=== PATIENT | female | born 1990 | race Caucasian/White ===

== ENCOUNTER 2016-11-08 20:56 | Emergency (ER) | payer MEDICAID ==
[~2016-11-08] VITALS: Ht 160 cm; Wt 72.6 kg
[~2016-11-08 20:56] MED LIST: ALBU17AE26
[2016-11-08 20:58] VITALS: BP_SYST 146
--- NOTE | 2016-11-08 21:10 | NUR ---
Placed in room Hallway . Report given to RN.
--- NOTE | 2016-11-08 21:10 | NUR ---
Patient AAO x4, sitting in chair, c/o minor itching to back of throat and "feeling like my throat is closing." Patient denies chest pain, denies N/V/D, denies shortness of breath. No rash noted to skin. Vital signs stable. Patient placed on pulse ox. No acute distress noted. Will continue to monitor.
--- NOTE | 2016-11-08 21:17 | NUR ---
TERI Alatorre at bedside examining patient.
[2016-11-08] MEDS ORDERED: DIPHENHYDRAMINE INJ 50 MG/ML VIAL IM ONE (21:30)
[2016-11-08] MEDS ORDERED: DEXAMETHASONE SOD PHOSPHATE 10 MG/ML VIAL IM ONE (21:30)
[2016-11-08] MEDS ORDERED: FAMOTIDINE 20 MG TABLET PO ONE (21:30)
[2016-11-08 22:05] VITALS: BP_SYST 122
--- NOTE | 2016-11-08 22:05 | NUR ---
Patient given written and verbal discharge instructions and verbalizes understanding. ER MD discussed with patient the results and treatment provided. Patient in stable condition. ID arm band removed. Rx of Prednisone, pepcid, benadryl given. Patient educated on pain management and to follow up with PMD. Pain Scale 0/10. Opportunity for questions provided and answered.
== END 2016-11-08 22:05 | disposition home or self-care (01) ==
LOC: SED 20:56
DX: T78.3XXA Angioneurotic edema, initial encounter (principal); J45.909 Unspecified asthma, uncomplicated; F32.9 Major depressive disorder, single episode, unspecified
CPT/HCPCS: 81025; 96372; 99284; J1100; J1200

== ENCOUNTER 2016-11-19 00:23 | Emergency (ER) | payer MEDICAID ==
[~2016-11-19] VITALS: Ht 160 cm; Wt 72.6 kg
[2016-11-19 00:23] VITALS: BP_SYST 151
[2016-11-19] MEDS ORDERED: IPRATROPIUM BROM 0.5 MG/2.5 ML VIAL.NEB (ATROVENT) IH ONE (00:45)
[2016-11-19] MEDS ORDERED: ALBUTEROL SULFATE 0.083% 2.5 MG/3 ML VIAL.NEB IH ONE (00:45)
[2016-11-19] MEDS ORDERED: ALBUTEROL SULFATE 0.083% 2.5 MG/3 ML VIAL.NEB INH ONE (00:49)
[2016-11-19 01:51] VITALS: BP_SYST 132
== END 2016-11-19 01:50 | disposition home or self-care (01) ==
LOC: SED 00:23
DX: J45.901 Unspecified asthma with (acute) exacerbation (principal)
CPT/HCPCS: 94640; 99283

== ENCOUNTER 2017-03-25 17:58 | Inpatient (IN) | payer MEDICAID ==
[~2017-03-25] VITALS: Ht 160 cm; Wt 71.7 kg
[2017-03-25 18:40] VITALS: BP_SYST 142
--- NOTE | 2017-03-25 18:45 | NUR ---
Patient to ER bed 05 to gown for evaluation. Side rails up. Report given to Kristine.
--- NOTE | 2017-03-25 18:45 | NUR ---
ER at bedside examining patient.
[2017-03-25] MEDS ORDERED: IPRATROPIUM/ALBUTEROL SULFATE 3 ML AMPUL.NEB INH ONE (19:00)
[2017-03-25] MEDS ORDERED: NACL 0.9% 1,000 ML IV ONE ×3 (19:00→22:15)
[2017-03-25] MEDS ORDERED: ACETAMINOPHEN 500 MG TABLET PO ONE (19:00)
--- NOTE | 2017-03-25 19:05 | NUR ---
Patient arrived to ED a/o x 4 with c/o fever since wednesday. Patient reports recording 102.3 temp while at home. Patient taking tylenol around the clock with no relief. Patient appears diaphoretic. Upon assessment patient presents with HR of 133. Temp of 101.2. Patient denies pain and malaise at this time. Will continue to monitor.
--- NOTE | 2017-03-25 19:05 | NUR ---
20 gauge angiocath placed to right AC. Use of asceptic technique. Opsite placed over site. Blood return noted. Blood for lab drawn from site. Flushed with 10 cc of normal saline. No evidence of infiltration noted. Patient tolerated well.
--- NOTE | 2017-03-25 19:40 | NUR ---
Radiology at bedside.
--- NOTE | 2017-03-25 20:05 | NUR ---
ED MD Osea at bedside evaluating patient.
[2017-03-25] MEDS ORDERED: LEVOFLOXACIN 500 MG/D5W 100 ML IV ONE (20:30)
[2017-03-25] MEDS ORDERED: cefTRIAXone 1 GM IVPB PREMIX 50 ML IV ONE (20:30)
[2017-03-25 20:43] LABS: BILIRUBIN,URINE NEGATIVE (NEGATIVE); BLOOD, URINE 1+ (NEGATIVE); CLARITY/URINE CLEAR (CLEAR); COLOR,URINE YELLOW (YELLOW); GLUCOSE,URINE NEGATIVE (NEGATIVE); KETONES,URINE NEGATIVE (NEGATIVE); LEUKOCYTE ESTERASE ,URINE 1+ (NEGATIVE); NITRITE, URINE NEGATIVE (NEGATIVE); PH,URINE 7.5 (5.0-8.0); PROTEIN URINE NEGATIVE (NEGATIVE); UROBILINOGEN,URINE 0.2 (0.2-1.0)
[2017-03-25 20:43] LABS: BASOPHILS % (AUTO) 0.1 % (0.0-2.0); EOSINOPHILS % (AUTO) 0.1 % (0.0-4.0); HEMATOCRIT 42.6 % (36-48); HEMOGLOBIN 14.4 g/dL (12.0-16.0); LYMPHOCYTES % (AUTO) 9.9 % (20.5-51.5); MEAN CORPUSCULAR HEMOGLOBIN 30 pg (27-31); MEAN CORPUSCULAR HGB CONC 34 % (32-36); MEAN CORPUSCULAR VOLUME 88 fL (79.0-98.0); MONOCYTES % (AUTO) 9.7 % (1.7-9.3); NEUTROPHILS # (AUTO) 8.5 K/uL (1.8-7.7); NEUTROPHILS % (AUTO) 80.2 % (40.0-70.0); PLATELET COUNT (AUTO) 262 K/uL (130-430); RED BLOOD CELL COUNT(AUTO) 4.83 MIL/uL (4.2-6.2); RED CELL DISTRIBUTION WIDTH 11.2 % (9.0-15.0); WHITE BLOOD COUNT (AUTO) 10.5 K/uL (4.8-10.8)
[2017-03-25 20:49] LABS: CALCIUM 8.8 mg/dL (8.4-11.0); CREATININE 0.7 mg/dL (0.55-1.30); POTASSIUM 3.7 mmol/L (3.5-5.1)
[2017-03-25 20:53] LABS: ALBUMIN 3.8 g/dL (3.4-4.8); TOTAL BILIRUBIN 0.4 mg/dL (0.0-1.0)
[2017-03-25 21:11] LABS: PROTHROMBIN TIME 10.8 SECS (9.5-12.5)
[2017-03-25 21:12] LABS: BACTERIA,URINE MANY /HPF (None Seen)
[2017-03-25 21:13] LABS: MUCUS,URINE None Seen /LPF (None Seen)
[2017-03-25] MEDS ORDERED: CETI1TAB2 PO (21:25)
[2017-03-25] MEDS ORDERED: LEVO1TAB24 PO (21:25)
[2017-03-25] MEDS ORDERED: MONT10TA25 PO (21:25)
[2017-03-25] MEDS ORDERED: CEL20 PO (21:25)
--- NOTE | 2017-03-25 21:26 | NUR ---
Medication reconciliation completed with information provided by PATIENT. Any prior medication reconciliation on file was reviewed and corrected.
--- NOTE | 2017-03-25 21:50 | NUR ---
ED MD Osea at bedside reassessing patient.
--- NOTE | 2017-03-25 22:27 | NUR ---
ADMISSION NOTE Received patient from ER via adelina, received report from Ranjan HUNTLEY. Patient admitted with diagnosis of PNA. Patient oriented to hospital routine, call light, toileting and safety-patient verbalized understanding.
--- NOTE | 2017-03-25 22:30 | NUR ---
Patient will be admitted to care of Dr. Greer. Admitted to Med/Surg unit. Will go to room 110B. Belongings list completed. Summary report printed. Report will be given at bedside. Transfer to [facility]. IV present no sign or symptom of infiltration.
[2017-03-25 22:34] VITALS: BP_SYST 132
[2017-03-25] MEDS ORDERED: AZITHROMYCIN 500 MG/VIAL (ZITHROMAX) IV ONE (22:48)
--- NOTE | 2017-03-25 23:00 | NUR ---
Medication Scheduled medication given please see EMAR. Educated patient aviation technical systems specialist light for assistance. Call light is with patient. oriented patient to room. Patient has family member at bed side. Patient shows no signs of distress breathing is equal and non labored. Patient is awake and sitting in bed. Patient has safety precautions in place. Will continue to monitor.
--- NOTE | 2017-03-26 | NUR ---
Snack Patient is requesting a snack provided snack to patient. Shows no signs of distress breathing is equal and non labored. Patient has call light with her educated to use for assistance. Patient has family member at bed side.Patient has safety precautions in place will continue to monitor.
[2017-03-26 00:34] VITALS: BP_SYST 120
--- NOTE | 2017-03-26 02:00 | NUR ---
RN rounding Patient appears to be resting with eyes closed no signs of distress breathing is equal and non labored with visible chest rise and fall. Patient has safety precautions in place. call light is with patient for assistance. Patient has family member at bed side.
[2017-03-26] MEDS: ACETAMINOPHEN 325 MG TABLET PO PRN ×2 (03:27→21:02)
--- NOTE | 2017-03-26 03:31 | NUR ---
Fever Patient has a temperature of 100.8 medicated as order cooling measures also applied. Patient shows no signs of distress breathing is equal and non labors. Patient has safety precautions in place. Refusing bed alarm at this time. Patients family member at bed side. Patient has call light with her educated use for assistance. will continue to monitor.
--- NOTE | 2017-03-26 04:33 | NUR ---
Reassessment of temperature Temperature went down to 99.9 F patient states she is feeling better. Patient shows no signs of distress breathing is equal and non labored. Safety precautions in place refusing bed alarm. Patient has call light with her educated to use for assistance.Family member is still at bed side. Will continue to monitor.
[2017-03-26 05:49] VITALS: BP_SYST 120
[2017-03-26] MEDS ORDERED: FLU VACC QS 2017-18(36MOS+)/PF 0.5 ML/SYR SYRINGE I.M. ONE (06:26)
--- NOTE | 2017-03-26 06:26 | NUR ---
RN clsoing note/ Flu shot Patients flu shot administered per request and protocol. Patient tolerated well applied band aid. Patient shows no signs of distress breathing is equal and non labored. Patient has call light with her educated to use for assistance. Patient has safety precautions in place refusing bed alarm will endorse report to oncoming day nurse at bed side. Patient is stable at this time.
[2017-03-26 07:09] LABS: BASOPHILS # (AUTO) 0.1 K/uL (0.0-0.2); BASOPHILS % (AUTO) 0.7 % (0.0-2.0); HEMATOCRIT 35.2 % (36-48); HEMOGLOBIN 12.5 g/dL (12.0-16.0); LYMPHOCYTES # (AUTO) 2.1 K/uL (1.0-5.5); LYMPHOCYTES % (AUTO) 24.7 % (20.5-51.5); MEAN CORPUSCULAR HEMOGLOBIN 31 pg (27-31); MEAN CORPUSCULAR HGB CONC 35 % (32-36); MEAN CORPUSCULAR VOLUME 88 fL (79.0-98.0); MONOCYTES # (AUTO) 0.9 K/uL (0.0-1.0); MONOCYTES % (AUTO) 10.3 % (1.7-9.3); NEUTROPHILS # (AUTO) 5.5 K/uL (1.8-7.7); NEUTROPHILS % (AUTO) 64.3 % (40.0-70.0); PLATELET COUNT (AUTO) 212 K/uL (130-430); RED BLOOD CELL COUNT(AUTO) 4.01 MIL/uL (4.2-6.2); RED CELL DISTRIBUTION WIDTH 11.4 % (9.0-15.0); WHITE BLOOD COUNT (AUTO) 8.6 K/uL (4.8-10.8)
[2017-03-26 07:48] LABS: CALCIUM 8.1 mg/dL (8.4-11.0); CREATININE 0.61 mg/dL (0.55-1.30); POTASSIUM 3.4 mmol/L (3.5-5.1); TOTAL BILIRUBIN 0.4 mg/dL (0.0-1.0)
--- NOTE | 2017-03-26 08:00 | NUR ---
AM SHIFT NOTE: RECEIVED PT A/O X4, C/O PNEUMONIA, IV AT RIGHT A/C, VOIDING, AMBULATED WELL, SKIN INTACT, BED AT LOW POSITION, CALL LIGHT WITHIN REACH.
[2017-03-26] MEDS ORDERED: AZITHROMYCIN 500 MG in NS 250 ML IV SCH (09:00)
[2017-03-26] MEDS ORDERED: cefTRIAXone 1 GM in D5W 50 ML IV SCH (09:00)
[2017-03-26] MEDS ORDERED: POTASSIUM CHLORIDE 20 MEQ TAB.PRT.SR PO ONE (10:30)
--- NOTE | 2017-03-26 10:30 | NUR ---
ROUNDING: ROUTINE MEDS GIVEN, PT WAS C/O NAUSEA AT THIS TIME, CONTINUE TO MONITOR.
--- NOTE | 2017-03-26 11:30 | NUR ---
Called pharmacy: Missing dose of IV Meds, called pharmacy, it was given last night at around 0030 03/26/19 am.
[2017-03-26 12:51] VITALS: BP_SYST 127
[2017-03-26 16:17] VITALS: BP_SYST 128
--- NOTE | 2017-03-26 16:30 | NUR ---
ROUNDING: PT WAS RESTING IN BED, FAMILY AT BED SIDE.
[2017-03-26] MEDS ORDERED: ONDANSETRON HCL 4 MG/2 ML VIAL IVP PRN (17:30)
--- NOTE | 2017-03-26 18:30 | NUR ---
ROUNDING: PT WAS C/O NAUSEA , MEDS GIVEN, CONTINUE TO MONITOR.
--- NOTE | 2017-03-26 19:05 | NUR ---
CLOSING: ENDORSED TO MIDDLE S[employer] PRINCIPAL RN/SERAFIN FOR CONTINUE CARE.
--- NOTE | 2017-03-26 19:10 | NUR ---
OPENING NOTES RECEIVED REPORT AT BEDSIDE. PT IS AOX4, IN GOOD SPIRITS. MOTHER AT BEDSIDE. IV PATENT AND SALINE LOCK. RESPIRATIONS EVEN AND UNLABORED. NO S/S OF ACUTE DISTRESS NOTED. BED IN LOWEST POSITION, BED ALARM ON, CALL LIGHT WITHIN REACH.
[2017-03-26 19:55] VITALS: BP_SYST 108
[2017-03-26] MEDS ORDERED: CEFTRIAXONE SOD 1 GM/ DEXTROSE,ISO 50 ML PREMIX IV SCH (21:00)
--- NOTE | 2017-03-26 21:07 | NUR ---
RN ROUNDS PATIENT IS SITTING UP IN BED, IN GOOD SPIRITS, COMPLAINING OF HEADACHE, AND A TEMP OF 99.8. ADMINISTERED PRN PAIN MEDICATION. MOTHER AT BEDSIDE.
--- NOTE | 2017-03-26 23:00 | NUR ---
RN ROUNDS PATIENT IS SLEEPING, RISE AND FALL OF CHEST NOTED. NO S/S OF ACUTE DISTRESS. FALL PRECAUTIONS IN PLACE, BED ALARM ON, CALL LIGHT WITHIN REACH. MOTHER AT BEDSIDE.
[2017-03-27] VITALS (7 sets, daily range): BP systolic 105–127
--- NOTE | 2017-03-27 00:08 | NUR ---
RN ROUNDS PT IS AFEBRILE, COUGHING, DENIES PAIN, DENIES NAUSEA. MOTHER AT BEDSIDE. IV ANTIBIOTICS INFUSING WITH NO SIGNS OF INFILTRATION. NO S/S OF ACUTE DISTRESS NOTED. FALL PRECAUTIONS IN PLACE. CALL LIGHT WITHIN REACH.
[2017-03-27] MEDS: AZITHROMYCIN 500 MG in NS 250 ML IV SCH ×2 (00:11→23:20)
--- NOTE | 2017-03-27 03:00 | NUR ---
RN ROUNDS NO CHANGE IN CONDITION, NO ACUTE DISTRESS NOTED
--- NOTE | 2017-03-27 04:57 | NUR ---
RN ROUNDS PT IS SLEEPING WITH VISIBLE RISE AND FALL FO CHEST NOTED. NO S/S OF ACUTE DISTRESS.
--- NOTE | 2017-03-27 06:57 | NUR ---
CLOSING NOTES PATIENT IS SITTING UP IN BED IN GOOD SPIRITS. NO S/S OF ACUTE DISTRESS. FALL PRECAUTIONS IN PLACE, BED ALARM ON, CALL LIGHT WITHIN REACH. MOTHER AT BEDSIDE. WILL ENDORSE CARE TO DAYSHIFT NURSE.
--- NOTE | 2017-03-27 07:40 | NUR ---
INATAL SHIFT NOTES RECEIVED REPORT AT BEDSIDE. PT IS AOX4, IN GOOD SPIRITS. MOTHER AT BEDSIDE. IV PATENT AND SALINE LOCK. RESPIRATIONS EVEN AND UNLABORED. NO S/S OF ACUTE DISTRESS NOTED. BED IN LOWEST POSITION, BED ALARM ON, CALL LIGHT WITHIN REACH WILL CONTINUE MONITORING.
[2017-03-27] MEDS ORDERED: POTASSIUM CHLORIDE 20 MEQ TAB.PRT.SR PO ONE (09:45)
[2017-03-27] MEDS ORDERED: traMADol HCL HCL 50 MG TABLET (ULTRAM) PO PRN (09:45)
--- NOTE | 2017-03-27 11:46 | NUR ---
ROUND NATHAN HAGER MED ROUND AT THIS TIME ALL UPDATES IS GIVEN WE WILL FOLLOW UP WITH NEW ORDER.
[2017-03-27 12:40] LABS: BASOPHILS % (AUTO) 0.4 % (0.0-2.0); EOSINOPHILS % (AUTO) 0.4 % (0.0-4.0); HEMATOCRIT 42.8 % (36-48); HEMOGLOBIN 14.5 g/dL (12.0-16.0); LYMPHOCYTES # (AUTO) 2.7 K/uL (1.0-5.5); LYMPHOCYTES % (AUTO) 39.5 % (20.5-51.5); MEAN CORPUSCULAR HEMOGLOBIN 29 pg (27-31); MEAN CORPUSCULAR HGB CONC 34 % (32-36); MEAN CORPUSCULAR VOLUME 87 fL (79.0-98.0); MONOCYTES % (AUTO) 14.2 % (1.7-9.3); NEUTROPHILS # (AUTO) 3.2 K/uL (1.8-7.7); NEUTROPHILS % (AUTO) 45.5 % (40.0-70.0); PLATELET COUNT (AUTO) 274 K/uL (130-430); RED BLOOD CELL COUNT(AUTO) 4.92 MIL/uL (4.2-6.2); RED CELL DISTRIBUTION WIDTH 11.3 % (9.0-15.0); WHITE BLOOD COUNT (AUTO) 6.9 K/uL (4.8-10.8)
[2017-03-27 12:43] LABS: CALCIUM 8.9 mg/dL (8.4-11.0); CREATININE 0.7 mg/dL (0.55-1.30); POTASSIUM 3.8 mmol/L (3.5-5.1)
--- NOTE | 2017-03-27 14:00 | NUR ---
RN ROUNDS PT IS SLEEPING NO S/S OF ACUTE DISTRESS NOTED AT THIS TIME WILL CONTINUE MONITORING.
[2017-03-27] MEDS: cefTRIAXone 1 GM IVPB PREMIX 50 ML IV SCH (14:59)
--- NOTE | 2017-03-27 18:28 | NUR ---
paged paged for Dr Greer, dialed [phone]. s/w Dianne.
[2017-03-27] MEDS ORDERED: ALPRAZolam 0.25 MG TABLET PO PRN (18:45)
[2017-03-27] MEDS: CITALOPRAM HYDROBROMIDE 20 MG TABLET PO SCH (18:45)
--- NOTE | 2017-03-27 18:51 | NUR ---
MEDICATION PT SAYS SHE TOOK CATALOPRAM 20MG DAILY AND ALPRAZOLAM 0.5 MG PRN FOR ANXIETY. PAGE FOR DR HAGER AND HE IS OK TO PUT THE MEDICATION IN OUR SYSTEM AND ADMINISTER ORDERED, MEDICATION IS PUT IN OUR SYSTEM AND WAITING OUT SIDE PHARMACY VERIFICATION. .
--- NOTE | 2017-03-27 18:59 | NUR ---
END OF SHIFT NOTE PT ON BED A,OX4, WAITING FOR ANTI ANXIETY MEDICATION, NO S/E OF SOB OR DISTRESS NOTED AT THIS TIME WE WILL INDORSE CARE FOR NEXT SHIFT.
--- NOTE | 2017-03-27 19:55 | NUR ---
INITIAL NOTE RECEIVED REPORT FROM DAY SHIFT. PT IN BED MOM BY BEDSIDE. PT STATES FEELING ANXIOUS REQUESTS FOR HER HOME MED FOR ANXIETY. MEDICATION GIVEN. SIDE EFFECTS EXPLAINED. PT DENIES ANY NEEDS THIS TIME. BED AT LOWEST POSITION. CALL LIGHT WITHIN REACH. WILL CONTINUE TO MONITOR.
--- NOTE | 2017-03-27 22:21 | NUR ---
rn rounds Pt in bed with eyes closed. Mom by bedside. Mom reports pt has been restless in bed but no complaint of pain or discomfort. safety precautions in place. bed lowest position. call light within reach. continues to monitor
[2017-03-28] VITALS: BP_SYST 109
[2017-03-28] MEDS: cefTRIAXone 1 GM IVPB PREMIX 50 ML IV SCH ×2 (00:36→12:23)
--- NOTE | 2017-03-28 00:40 | NUR ---
RN rounds Pt in bed with eyes open. pt antibiotic given. side effects explained. no adverse effects noted. pt denies any needs at this time. Mom sleeping by bedside. safety measures in place. bed lowest position. call light within reach. will continue to monitor.
--- NOTE | 2017-03-28 03:00 | NUR ---
Rn rounds Pt in bed sleeping comfortably. Mom sleeping by bedside. Safety precautions in place. Bed lowest position. Call light within reach. continues to monitor
[2017-03-28 04:24] VITALS: BP_SYST 116
--- NOTE | 2017-03-28 05:00 | NUR ---
Rounds Pt sleeping comfortably. No acute respiratory distress noted. Mom sleeping by bedside. Safety measures in place. Bed lowest position. Call light within reach. will continue to monitor
--- NOTE | 2017-03-28 06:35 | NUR ---
Closing note Pt slept comfortably this shift. Early in the shift pt was anxious. PRN anxiety medication given an dpt did not have any more c/o of anxiety. Mom stayed by bedside. Pt scheduled for a chest Xray this AM. Will ambulate with radiologist to radiology. Pt denies any chest pain this shift. o2 sat was 95% on RA. Pt received two antibiotics this shift, with no adverse effects. Safety precautions maintained. Bed at lowest position, call light within reach. Will endorse pt to next shift.
[2017-03-28 07:45] VITALS: BP_SYST 111
--- NOTE | 2017-03-28 08:00 | NUR ---
INATAL SHIFT NOTES RECEIVED REPORT FROM NIGHT NURSE. PT IS AOX4. MOTHER AT BEDSIDE. IV PATENT AND SALINE LOCK. RESPIRATIONS EVEN AND UNLABORED. NO S/S OF ACUTE DISTRESS NOTED. BED IN LOWEST POSITION, BED ALARM ON, CALL LIGHT WITHIN REACH WILL CONTINUE MONITORING.
--- NOTE | 2017-03-28 10:00 | NUR ---
RN ROUNDS NO CHANGE IN CONDITION, NO ACUTE DISTRESS NOTED
[2017-03-28] MEDS: CITALOPRAM HYDROBROMIDE 20 MG TABLET PO SCH (10:20)
--- NOTE | 2017-03-28 14:00 | NUR ---
MD EDGAR HAGER MADE ROUND AT THIS TIME NEW ORDER D/C PT TODAY.
[2017-03-28 15:07] VITALS: BP_SYST 115
--- NOTE | 2017-03-28 15:37 | NUR ---
D/C Patient Patient given medication prescription and D/C instructions. Exit Care provided. Patient verbalized understanding. MD discussed with patient the results and treatment provided. Ambulatory with steady gait for discharge to home. Patient in stable condition, ID band removed. IV catheter removed, intact and dressing applied, no active bleeding. Rx of given. Patient educated on pain management. All belongings sent with patient.
== END 2017-03-28 15:37 | disposition home or self-care (01) | DRG 139 ==
LOC: SED 17:58 → SMU 22:21
PROVIDERS: ADMIT Internal Medicine; ATTEND Internal Medicine
DX: J18.9 Pneumonia, unspecified organism (principal); E44.1 Mild protein-calorie malnutrition; E87.6 Hypokalemia; F32.9 Major depressive disorder, single episode, unspecified; J45.909 Unspecified asthma, uncomplicated; Z79.899 Other long term (current) drug therapy; Z68.28 Body mass index [BMI] 28.0-28.9, adult
CPT/HCPCS: 36415; 71010; 71020-TC; 80048; 80053; 81000-TC; 84703; 85025; 85610-TC; 85730-TC; 86710; 87040-TC; 87086; 93005; 94640; 96361; 96365; 96368; 99285; J0456; J0696; J1956; J2405; J7030; J7040; J7050; J7060; Q2037

== ENCOUNTER 2020-05-08 11:01 | Emergency (ER) | payer MEDICAID ==
[~2020-05-08] VITALS: Ht 165.1 cm; Wt 68.0 kg
[~2020-05-08 11:01] MED LIST changes: +CEL20 PO; +CETI1TAB2 PO; +LEVO1TAB24 PO; +MONT10TA27 PO
--- NOTE | 2020-05-08 11:04 | NUR ---
Patient to ER bed 06 to gown for evaluation. Side rails up.
--- NOTE | 2020-05-08 11:06 | NUR ---
Pt brought by self, A&Ox4, pt presents to ER with SOB, Hx of asthma, skin pink and warm, cap refill <3, VSS.
[2020-05-08 11:10] VITALS: BP_SYST 160
--- NOTE | 2020-05-08 11:15 | NUR ---
Dr aGstelum evaluating patient at bedside
[2020-05-08] MEDS ORDERED: IPRATROPIUM BROM 0.5 MG/2.5 ML VIAL.NEB (ATROVENT) INH ONE (11:30)
[2020-05-08] MEDS ORDERED: ALBUTEROL SULFATE 0.083% 2.5 MG/3 ML VIAL.NEB INH ONE (11:30)
[2020-05-08] MEDS ORDERED: predniSONE 20 MG TABLET PO ONE (11:30)
--- NOTE | 2020-05-08 11:35 | NUR ---
Prednisone 60mg given PO, scanner not working, name and verified
--- NOTE | 2020-05-08 11:45 | NUR ---
RT LORENZANA AT BS FOR RESPIRATORY [place]
--- NOTE | 2020-05-08 12:14 | NUR ---
REPORT TO JONATHON HUNTLEY
[2020-05-08 12:28] VITALS: BP_SYST 137
--- NOTE | 2020-05-08 12:28 | NUR ---
Patient given written and verbal discharge instructions and verbalizes understanding. ER MD discussed with patient the results and treatment provided. Patient in stable condition. ID arm band removed. Rx of [place], Zofran and Prednisone given. Patient educated on pain management and to follow up with PMD. Pain Scale 0. Opportunity for questions provided and answered. Medication side effect fact sheet provided.
== END 2020-05-08 12:28 | disposition home or self-care (01) ==
LOC: SED 11:01
DX: J45.901 Unspecified asthma with (acute) exacerbation (principal); Z79.899 Other long term (current) drug therapy
CPT/HCPCS: 94640; 99283; J7512; J7613

== ENCOUNTER 2022-07-17 06:36 | Emergency (ER) | payer BC, MEDICAID ==
[~2022-07-17] VITALS: Ht 160 cm; Wt 86.2 kg
[~2022-07-17 06:36] MED LIST changes: +MONT-40 PO; -MONT10TA27 PO
--- NOTE | 2022-07-17 07:00 | NUR ---
ER in waiting room examining patient.
[2022-07-17 07:02] VITALS: BP_SYST 151
[2022-07-17] MEDS ORDERED: NAPR-1172 PO (07:02)
[2022-07-17] MEDS ORDERED: AUG875 PO (07:02)
[2022-07-17 07:15] VITALS: BP_SYST 151
--- NOTE | 2022-07-17 07:15 | NUR ---
Patient given written and verbal discharge instructions by Dr Arnold and verbalizes understanding. ER MD discussed with patient the care provided. Patient in stable condition. Rx of Augmentin and Naproxen sentto pharmacy of choice by ER MD. Patient educated on pain management and to follow up with PMD. Opportunity for questions provided and answered by Dr Arnold.
== END 2022-07-17 07:15 | disposition home or self-care (01) ==
LOC: SED 06:36
DX: J01.90 Acute sinusitis, unspecified (principal); R51.9 Headache, unspecified; R09.81 Nasal congestion; J45.909 Unspecified asthma, uncomplicated; Z79.899 Other long term (current) drug therapy
CPT/HCPCS: 99283